=== PATIENT | male | born 1970 | race Caucasian/White ===

== ENCOUNTER 2018-11-04 11:51 | Emergency (ER) | payer MEDICARE ==
[~2018-11-04] VITALS: Ht 177.8 cm; Wt 100.9 kg
[~2018-11-04 11:51] MED LIST: LISI-661 PO; OLAN10TA3 PO; OMEP20 PO
[2018-11-04] MEDS ORDERED: PERTUSS(ACELL),DIPH,TET VAC/PF 0.5 ML VIAL IM ONE (12:45)
[2018-11-04] MEDS ORDERED: LIDOCAINE/PF 1% 5 ML VIAL INJ ONE (12:45)
[2018-11-04] MEDS ORDERED: BACITRACIN 0.9 GM PACKET OINTMENT TP ONE (12:45)
[2018-11-04 14:10] VITALS: BP 148/68
== END 2018-11-04 14:13 | disposition home or self-care (01) ==
LOC: EMS 11:52
DX: S01.412A Laceration without foreign body of left cheek and temporomandibular area, initial encounter (principal); F31.9 Bipolar disorder, unspecified; F20.9 Schizophrenia, unspecified; F17.210 Nicotine dependence, cigarettes, uncomplicated; Z79.899 Other long term (current) drug therapy; W26.0XXA Contact with knife, initial encounter; Y93.01 Activity, walking, marching and hiking; Y92.89 Other specified places as the place of occurrence of the external cause; Y99.8 Other external cause status
CPT/HCPCS: 12011; 90471; 90715; 99283; J3490

== ENCOUNTER 2023-05-31 15:10 | Emergency (ER) | payer MEDICARE, MEDICAID ==
[~2023-05-31] VITALS: Ht 172.7 cm; Wt 79.5 kg
[~2023-05-31 15:10] MED LIST changes: -LISI-661 PO; +LISI-893 PO; -OLAN10TA3 PO; +OLAN10TA74 PO
[2023-05-31 15:45] VITALS: TEMP 98.2
[2023-05-31 18:15] VITALS: BP 124/71; PULSE 79; RESP 17
[2023-05-31] MEDS ORDERED: LIDOCAINE 1% 10 ML VIAL ID ONE (19:15)
[2023-05-31] MEDS ORDERED: SODIUM CHLORIDE 0.9% 250 ML IRRIG SOLUTION BOTTLE IRRIG ONE (19:15)
[2023-05-31] MEDS ORDERED: PERTUSS(ACELL),DIPH,TET VAC/PF 0.5 ML SYRINGE IM. ONE (19:15)
[2023-05-31] MEDS ORDERED: CEPH-558 PO (22:28)
== END 2023-05-31 22:42 | disposition home or self-care (01) ==
LOC: EMS 15:11
DX: S61.213A Laceration without foreign body of left middle finger without damage to nail, initial encounter (principal); F31.9 Bipolar disorder, unspecified; F20.9 Schizophrenia, unspecified; F17.210 Nicotine dependence, cigarettes, uncomplicated; Z88.8 Allergy status to other drugs, medicaments and biological substances; W26.8XXA Contact with other sharp object(s), not elsewhere classified, initial encounter; Y93.89 Activity, other specified; Y92.89 Other specified places as the place of occurrence of the external cause; Y99.8 Other external cause status
CPT/HCPCS: 99283; 73130; 90715; 90471; 12002; J3490